=== PATIENT | male | born 1960 | race Caucasian/White ===

== ENCOUNTER 2025-01-04 21:30 | Emergency (ER) | payer SELFPAY ==
[2025-01-04 21:41] VITALS: BP 149/82
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
[2025-01-04] MEDS: MOTRIN 600 MG PO (22:53)
== END 2025-01-04 23:02 | disposition home or self-care (01) ==
LOC: EMR 21:30
PROVIDERS: EMERGENCY PHYSICIAN Emergency Medicine; FAMILY PHYSICIAN Internal Medicine
DX: S16.1XXA Strain of muscle, fascia and tendon at neck level, initial encounter (principal); S60.211A Contusion of right wrist, initial encounter; S80.01XA Contusion of right knee, initial encounter; S60.811A Abrasion of right wrist, initial encounter; V49.40XA Driver injured in collision with unspecified motor vehicles in traffic accident, initial encounter; Y92.410 Unspecified street and highway as the place of occurrence of the external cause; M19.90 Unspecified osteoarthritis, unspecified site; Z90.81 Acquired absence of spleen; Z96.641 Presence of right artificial hip joint; Z96.611 Presence of right artificial shoulder joint; Z79.82 Long term (current) use of aspirin
CPT/HCPCS: 99284; 72040; 73110; 73564

== ENCOUNTER 2025-04-11 07:07 | Emergency (ER) | payer BC, SELFPAY ==
[2025-04-11 07:07] VITALS: BMI 28.8
[2025-04-11 07:10] VITALS: BP 140/83
[2025-04-11 07:29] VITALS: BP 132/85
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
[2025-04-11] MEDS: NSS 1000 IV (07:42)
[2025-04-11] MEDS: ZOFRAN 4 MG IV (07:47)
[2025-04-11 08:00] VITALS: BP 136/78
[2025-04-11 08:04] LABS: % Basophils 0.4 % (0-2); % Eosinophils 1.4 % (0-6); % Immature Granulocytes 0.3 % (0-0.5); % Monocytes 10.9 % (1.7-9.3); Absolute Eosinophils 0.1 10^3/uL (0-0.7); Absolute Lymphocytes 1.6 10^3/uL (1.2-3.4); Absolute Monocytes 1.1 10^3/uL (0.1-0.6); Absolute Neutrophils 6.9 10^3/uL (1.4-6.5); Hematocrit 41.5 % (39.0-52.0); Hemoglobin 14.3 g/dL (13.0-18.0); Mean Corp Hgb Conc. 34.5 g/dL (33.0-37.0); Mean Corpuscular Hgb 32.1 pg (27.0-31.0); Mean Platelet Volume 9.8 fL (7.4-10.4); Nucleated Red Blood Cells % 0 % (-); Platelet Count 317 10^3/uL (130-400); Red Blood Cell Count 4.46 10^6/uL (4.70-6.10); Red Cell Dist. Width 13.8 % (11.5-14.5); White Blood Cell Count 9.8 10^3/uL (4.8-10.8)
[2025-04-11 08:07] LABS: Urine Albumin 2+ (Neg - Trace); Urine Bilirubin Negative (Negative); Urine Character Clear (Clear); Urine Color Yellow; Urine Glucose Negative (Negative); Urine Ketone Negative (Negative); Urine Leukocyte Negative (Negative); Urine Nitrite Negative (Negative); Urine Occult Blood 1+ (Negative); Urine Urobilinogen Negative (Neg - 1+)
[2025-04-11 08:21] LABS: ALT (SGPT) 19 U/L (0-50); AST (SGOT) 20 U/L (17-59); Albumin 4.6 g/dl (3.5-5.0); Alkaline Phosphatase 108 U/L (38-126); Blood Urea Nitrogen 26 mg/dl (9-20); Calcium 10.1 mg/dl (8.4-10.2); Carbon Dioxide 24 mmol/L (22-30); Chloride 108 mmol/L (98-107); Estimated Creatinine Clearance 61 ml/min; Glucose 104 mg/dl (70-99); Lipase 111 U/L (23-300); Potassium 4.5 mmol/L (3.5-5.1); Sodium 141 mmol/L (135-145); Total Protein 7.8 g/dl (6.3-8.2); eGFR 55.78
[2025-04-11 09:00] VITALS: BP 140/78
[2025-04-11 09:19] LABS: Urine Bacteria Few (Negative); Urine Squamous Cell 0-2 /LPF (Few)
[2025-04-11 09:37] VITALS: BP 135/78
[2025-04-11 10:00] VITALS: BP 145/76
== END 2025-04-11 11:36 | disposition home or self-care (01) ==
LOC: EMR 07:07
PROVIDERS: Nurse Practitioner; EMERGENCY PHYSICIAN Emergency Medicine; FAMILY PHYSICIAN Internal Medicine
DX: N20.0 Calculus of kidney (principal); Z90.81 Acquired absence of spleen
CPT/HCPCS: 99284; 74177; 80053; 81003; 81015; 83690; 85025; Q9967

== ENCOUNTER → 2025-08-11 14:15 | Outpatient (REF) | payer BC, SELFPAY ==
[2025-08-11 15:06] LABS: Urine Character Clear (Clear)
[2025-08-11 15:21] LABS: Urine Squamous Cell 0-2 /LPF (Few)
== END ==
LOC: REG 14:15
PROVIDERS: ATTENDING PHYSICIAN Specialist; FAMILY PHYSICIAN Internal Medicine
DX: N39.0 Urinary tract infection, site not specified (principal)
CPT/HCPCS: 81003; 81015; 87086

== ENCOUNTER → 2025-08-15 08:52 | Outpatient (REF) | payer BC, SELFPAY | LOC: HWRAD 08:52 | PROVIDERS: ATTENDING PHYSICIAN Specialist; FAMILY PHYSICIAN Internal Medicine | DX: N20.0 Calculus of kidney (principal) | CPT/HCPCS: 74176 ==

== ENCOUNTER 2025-08-20 06:29 | Day surgery (SDC) | payer BC, SELFPAY ==
[2025-08-20 14:10] VITALS: BMI 28.5
[2025-08-20 14:40] VITALS: BP 144/83; BMI 28.5
[2025-08-20] MEDS: NORMOSOL-R/PLASMALYTE-A 1000 IV (14:50)
[2025-08-20 15:02] LABS: Hematocrit 41.2 % (39.0-52.0); Hemoglobin 14.2 g/dL (13.0-18.0); Mean Corp Hgb Conc. 34.5 g/dL (33.0-37.0); Mean Corpuscular Volume 92.6 fL (80.0-94.0); Platelet Count 339 10^3/uL (130-400); Red Cell Dist. Width 13.8 % (11.5-14.5)
[2025-08-20 15:17] LABS: Blood Urea Nitrogen 22 mg/dl (9-20); Calcium 10.0 mg/dl (8.4-10.2); Carbon Dioxide 24 mmol/L (22-30); Chloride 105 mmol/L (98-107); Estimated Creatinine Clearance 86 ml/min; Glucose 93 mg/dl (70-99); Potassium 4.4 mmol/L (3.5-5.1); Sodium 138 mmol/L (135-145); eGFR > 60.00
[2025-08-20 17:25] VITALS: BP 144/83; BP 155/96
[2025-08-20 17:30] VITALS: BP 150/78
[2025-08-20 17:55] VITALS: BP 161/89
[2025-08-20 18:10] VITALS: BP 165/89
[2025-08-20 18:30] VITALS: BP 159/90
[2025-08-20] MEDS: TORADOL 15 MG IV (18:48)
== END 2025-08-20 19:00 | disposition home or self-care (01) ==
LOC: SDS 06:29
PROVIDERS: ATTENDING PHYSICIAN Specialist
DX: N20.1 Calculus of ureter (principal); N40.1 Benign prostatic hyperplasia with lower urinary tract symptoms; N31.9 Neuromuscular dysfunction of bladder, unspecified
CPT/HCPCS: 52356; 74018; 76000; 80048; 85027; 93005; C1758; C1894; C2617

== ENCOUNTER 2025-08-22 20:45 | Inpatient (IN) | payer BC, SELFPAY ==
[2025-08-22] VITALS (9 sets, daily range): BP systolic 124–176; BP diastolic 63–106; BMI 28.3; BMI 28.8
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
[2025-08-22] MEDS: TORADOL 15 MG IV (12:00)
[2025-08-22] MEDS: ZOFRAN 4 MG IV (12:00)
[2025-08-22 12:59] LABS: Hematocrit 41.9 % (39.0-52.0); Hemoglobin 14.1 g/dL (13.0-18.0); Mean Corp Hgb Conc. 33.7 g/dL (33.0-37.0); Mean Corpuscular Volume 93.7 fL (80.0-94.0); Nucleated Red Blood Cells % 0 % (-); Platelet Count 356 10^3/uL (130-400); Red Cell Dist. Width 13.9 % (11.5-14.5)
[2025-08-22 13:13] LABS: ALT (SGPT) 21 U/L (0-50); AST (SGOT) 31 U/L (17-59); Albumin 4.9 g/dl (3.5-5.0); Alkaline Phosphatase 108 U/L (38-126); Blood Urea Nitrogen 47 mg/dl (9-20); Calcium 10.1 mg/dl (8.4-10.2); Carbon Dioxide 22 mmol/L (22-30); Chloride 104 mmol/L (98-107); Estimated Creatinine Clearance 29 ml/min; Glucose 108 mg/dl (70-99); Potassium 4.7 mmol/L (3.5-5.1); Sodium 141 mmol/L (135-145); Total Protein 8.3 g/dl (6.3-8.2); eGFR 22.35
[2025-08-22 13:14] LABS: Urine Character Bloody (Clear)
[2025-08-22 13:51] LABS: Urine Squamous Cell None seen /LPF (Few)
[2025-08-22 13:52] LABS: Urine Red Blood Cell >100 /HPF (0-2)
[2025-08-22] MEDS: DILAUDID 0.5 MG IV (18:27)
--- NOTE | 2025-08-22 19:06 | W.PN.UPDATE ---
Update Note
Progress Note Update
This note serves as an addendum to the H&P by rn surgery icu Kevan Ellis
HPI
65M s/p R Ureter stent placed [address] Diggs.
- he pw acute Lt flank pain
- retaining urine with about 650ml post void.
- CT shows new left sided hydro.
- Associated THU w Cr 3.0.
Per ER AP - he dw Dr. Joyce who recommended Brooke and admit.
Relevant VS
Temp Pulse Resp BP Pulse Ox
97.7 F 69 16 146/87 96
08/22/25 13:42 08/22/25 14:00 08/22/25 14:00 08/22/25 18:00 08/22/25 18:00
PE
Gen: looks uncomfortable due to acute pain
HEENT: atraumatic
CVS: RRR , CTA
Abdomen: soft tender to the suprapubic region and left lower quadrant.
Ext: edema
Relevant Data
08/20/25 08/22/25
14:49 12:50
WBC 15.5 H
Hgb 14.2 14.1
Plt Count 339 356
Ur Specific [place] 1.010
Ur Occult Blood Reflex 4+ A
Urine Nitrite (Reflex) Negative
Urine RBC >100 A
Urine WBC (Reflex)
Ur Squamous Epith Cells None seen
08/20/25 08/22/25
14:49 12:50
Potassium 4.4 4.7
Carbon Dioxide 24 22
BUN 22 H 47 H
Creatinine 1.0 3.0 H
eGFR > 60.00 22.35
08/22/25 CT Abd/pelvis W Iv Cont
- Interval development of mild LEFT hydroureteronephrosis, though without obstructing renal or ureteral calculus. Uncertain etiology.
Possibly superimposed infection.
- Right internal double-J nephroureteral stent has been placed since prior examination, though the distal stent tip is coiled within the distal ureter, proximal to the ureterovesical junction.
There is a 1 mm residual stone fragment within the right ureter at the level of the crossing iliac vessel. Moderate to advanced right hydroureteronephrosis noted.
- Nonspecific trace free fluid in the left lower quadrant. No inflammatory bowel wall thickening appreciated. No evidence of bowel obstruction. Mild colonic fecal burden.
08/20/25 AXR
Right ureteroscopy, laser lithotripsy of an obstructing right ureteral calculus, and right ureteral stent placement.
ASSESSMENT & PLAN
Acute Lt flank pain and bladder retention w PVR 650ml
FC placed and draining hematuria with clot
CT evidence of -new mild L hydroureteronephrosis, probable due to acute bladder clot retention though without obstructing renal or ureteral calculus
- empiric IV CFTZ
- CBI in place of F cath
- UCx
- Urologist consulted ( Dr. Joyce)
Associated THU due to Obstructive uropathy
- CBI drainage to clear the clots
- IVF
- Tx of complicated UTI
- Trend Cr
S/p R internal double-J nephroureteral stent
- the distal stent tip is coiled within the distal ureter, proximal to the ureterovesical junction.
- 1 mm residual stone fragment within the R ureter at the level of the crossing iliac vessel.
- Moderate to advanced right hydroureteronephrosis noted
- await Uro evaluation
DVT Px: SCD
Full code
IP MS
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
[2025-08-22] MEDS: DILAUDID 1 MG IV (19:47)
[2025-08-22] MEDS: NSS 1000 IV (21:29)
[2025-08-22] MEDS: ROCEPHIN 1000 MG IV (21:29)
[2025-08-22] MEDS: STERILE WATER FOR INJECTION 10 ML IV (21:29)
--- NOTE | 2025-08-22 23:20 | PTCARENOTE ---
Pt arrived to unit from ED on stretcher at 2245. Pt ambulated to bed with standby assist-erect posture. Pt denies pain at this time. CBI w/ 3 way del toro in place-pink drainage with no clots. Pt is expelling small clots from tip of penis, denies pain,
abd fullness or discomfort-declines analgesia at this time. IVF maintained-NSS@100ml/hr. Pt made aware about being NPO at midnight and is agreeable. VSS. Bed in lowest position and locked, call christianson within reach, patient has no further concerns at
this time.
[2025-08-23 07:56] LABS: ALT (SGPT) 16 U/L (0-50); AST (SGOT) 21 U/L (17-59); Albumin 3.5 g/dl (3.5-5.0); Alkaline Phosphatase 75 U/L (38-126); Blood Urea Nitrogen 37 mg/dl (9-20); Calcium 9.1 mg/dl (8.4-10.2); Carbon Dioxide 25 mmol/L (22-30); Chloride 111 mmol/L (98-107); Estimated Creatinine Clearance 43 ml/min; Glucose 98 mg/dl (70-99); Potassium 5.1 mmol/L (3.5-5.1); Sodium 142 mmol/L (135-145); Total Protein 6.2 g/dl (6.3-8.2); eGFR 36.36
[2025-08-23 07:57] LABS: Hematocrit 35.5 % (39.0-52.0); Hemoglobin 12.0 g/dL (13.0-18.0); Mean Corp Hgb Conc. 33.8 g/dL (33.0-37.0); Mean Corpuscular Volume 93.7 fL (80.0-94.0); Nucleated Red Blood Cells % 0 % (-); Red Cell Dist. Width 13.9 % (11.5-14.5)
[2025-08-23] MEDS: NSS 1000 IV (07:58)
[2025-08-23 08:03] VITALS: BP 129/72
[2025-08-23] MEDS: TYLENOL 650 MG PO (08:04)
--- NOTE | 2025-08-23 10:00 | CONS.URO ---
Addendum entered and electronically signed by José Manuel Joyce MD 08/23/25 10:10:
No further antibiotics necessary
Original Note:
Consultation
-
Date/Time Consultation Performed: 08/23/25 0930
Performing Provider: Maria Del Carmen
Reason for Consultation: Retention, hydrom, hematuria
Medical History
History of Present Illness
65M s/p R ureteroscopy, laser lithotripsy last week with Dr. Diggs
Known prostatomegaly
Post op was unable to void for >24hrs with only dribbling/leaking
Associated with abdominal and pelvic pain, radiating some to L
Presented to ED and CT showed b/l hydro
Migration of R stent into distal ureter
Distended bladder
A del toro was placed in the ED, initially in poor position likely within the prostate and requiring replacement with 22Fr 3 way because of induced hematuria
After cath placed it has drained well with minimal CBI overnight
This AM he feels well with no pain - pain resolved shortly after proper del toro placement
Creatinine improved significantly
Past Medical History
Past Medical History: Other (BPH, kidney stones)
Past Surgical History: Urological
Social History
Personal:
Family History
Family History: Reviewed & Not Pertinent
Allergies/Home Medications
Allergies
Allergy/AdvReac Type Severity Reaction Status Date / Time
No Known Allergies Allergy Verified 08/22/25 11:17
Home Medications
�Medication �Instructions �Recorded �Confirmed �Type
multivitamin 1 tab PO DAILY Supplement 08/19/25 08/22/25 History
tamsulosin 0.4 mg capsule 0.4 mg PO QPM Urinary Issue 08/19/25 08/22/25 History
Physical Exam
Vital Signs
Vital Signs
Temp Pulse Resp BP Pulse Ox
99.0 F 61 18 129/72 97
08/23/25 07:50 08/23/25 08:03 08/23/25 08:03 08/23/25 08:03 08/23/25 08:03
Lab / Testing Results
Laboratory Results
08/23/25 06:57
08/23/25 06:57
Physical Exam
General: Well Developed, Well Nourished, No Apparent Distress and Good Appetite
Respiratory: Clear and Non Labored Respirations
GI: Soft and Non Tender
Genito-urinary: Clear Urine and Del Toro Catheter
Neuro: AO x 3
Psych: Calm and Intact Judgement
Assessment / Plan
-
65M with THU and b/l hydronephrosis due to acute urinary retention with overflow incontinence
Post op retention from R ureteroscopy, laser, stent placement
Distal curl of stent migrated inside distal ureter
Hematuria from catheter placement trauma
- THU improved considerably with del toro catheter placement
- Continue tamsulosin, maintain del toro at discharge for outpatient trial of void
- Hematuria mostly resolved with CBI clamped
- Cap CBI port
- Malpositioned R ureteral stent unlikely contributor to obstructive uropathy and THU from urinary retention
- String tether remnant left on the stent by Dr. Diggs should enable routine removal in the office as planned
Stable for discharge with del toro in place from urology standpoint
Outpatient follow up with Dr. Diggs
[2025-08-23 10:38] LABS: Platelet Count 284 10^3/uL (130-400)
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
[2025-08-23 15:00] VITALS: BP 135/77
== END 2025-08-23 16:22 | disposition home or self-care (01) | DRG 683 ==
LOC: 2 NORTH 20:45
PROVIDERS: Clinical Nurse Specialist Family Health; Physician Assistant; ADMITTING PHYSICIAN Internal Medicine; ATTENDING PHYSICIAN Internal Medicine; CONSULT PHYSICIAN Urology; EMERGENCY PHYSICIAN Student in an Organized Health Care Education/Training Program; FAMILY PHYSICIAN Internal Medicine
DX: N17.9 Acute kidney failure, unspecified (principal); N20.2 Calculus of kidney with calculus of ureter; N13.6 Pyonephrosis; N39.490 Overflow incontinence; I10 Essential (primary) hypertension; Z79.899 Other long term (current) drug therapy; Z87.442 Personal history of urinary calculi
CPT/HCPCS: 51702; 74177; 80053; 81003; 81015; 85025; 86850; 86900; 86901; 87086; 96361; 96374; 96375; 97161; 99284; Q9967

== ENCOUNTER 2025-08-27 03:38 | Emergency (ER) | payer BC, SELFPAY ==
[2025-08-27 03:45] VITALS: BP 163/81
[2025-08-27 04:13] VITALS: BP 147/87
[2025-08-27] MEDS: NSS 1000 IV (04:29)
[2025-08-27 05:00] VITALS: BP 127/77
[2025-08-27 05:13] LABS: Urine Character Slightly Cloudy (Clear)
[2025-08-27 06:00] VITALS: BP 127/83
[2025-08-27 06:07] LABS: Urine Red Blood Cell >100 /HPF (0-2); Urine Squamous Cell 0-2 /LPF (Few)
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
== END 2025-08-27 06:18 | disposition home or self-care (01) ==
LOC: EMR 03:38
PROVIDERS: EMERGENCY PHYSICIAN Student in an Organized Health Care Education/Training Program; FAMILY PHYSICIAN Internal Medicine
DX: R33.9 Retention of urine, unspecified (principal); M19.90 Unspecified osteoarthritis, unspecified site; Z96.611 Presence of right artificial shoulder joint; Z96.641 Presence of right artificial hip joint
CPT/HCPCS: 99284; 96360; 51702; 81003; 81015; 87086